=== PATIENT | female | born 2000 | race American Indian/Alaskan Native ===

== ENCOUNTER 2021-05-22 08:03 | Inpatient (IN) | payer OTHER ==
--- NOTE | 2021-05-22 09:56 | History and Physical Report ---
History of Present Illness Date of examination: 05/22/21 Date of admission: 05/22/21 Chief complaint: contractions since 0300 History of present illness: EDC Confirmation: 05/28/2021 Past History : 1 Term Births: 0 Premature Births: 0 Living Children: 0 Para: 0 Mult. Births: 0 Prev : 0 Prev. attempt? 0 Aborta: 0 Elect. Ab: 0 Spont. 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 Infection History Hx of STD: Trich HIV Risk Eval: no Hepatitis B Risk Eval: low risk Partner hx. of genital herpes: no Rash, Viral, or Febrile illness since last LMP? no Varicella/Chicken Pox Status: Immunized Genetic History Congenital Heart Defect: Mom: no Dad: no Livia Disease: Mom: no Dad: no Thalassemia Mom: no Dad: no Neural Tube Defect Mom: no Dad: no Down's Syndrome Mom: no Dad: no Amrik-Sachs Mom: no Dad: no Sickle Cell Disease/Trait Mom: no Dad: no Hemophilia Mom: no Dad: no Muscular Dystrophy Mom: no Dad: no Cystic Fibrosis Mom: no Dad: no Jack Chorea Mom: no Dad: no Mental Retardation Mom: no Dad: no Fragile X Mom: no Dad: no Other Genetic/Chromosomal Disorder Mom: no Dad: no Child w/other defect Mom: no Dad: no Enviromental Exposures Xray Exposure: no Medication, drug, or alcohol use since LMP: no Chemical/Other Exposure: no Exposure to Cat Liter: no Hx of Parvovirus (Fifth Disease): no Occupational Exposure to Children: none Current Allergies (reviewed today): No known allergies Past History Past Medical History: no pertinent history, other (see HPI) Past Surgical History: other (facial reconstruction, see HPI) 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 denies: smoking, alcohol abuse, prescription drug abuse, IV drug use - Obstetrical History Expected Date of Delivery: 05/28/21 Actual Gestation: 39 Week(s) 1 Day(s) : 1 Para: 0 Hx # Term Pregnancies: 0 Number of Pregnancies: 0 Spontaneous Abortions: 0 Induced : 0 Number of Living Children: 0 Medications and Allergies Allergies Allergy/AdvReac Type Severity Reaction Status Date / Time No Known Allergies Allergy Unverified 05/22/21 08:16 Active Meds: Active Medications Ondansetron HCl (Ondansetron 4 Mg/2 Ml Inj) 4 mg IV ONCE VICKY Stop: 05/22/21 12:00 Last Admin: 05/22/21 09:36 Dose: 4 mg Review of Systems All systems: negative Gastrointestinal: nausea, vomiting Genitourinary: contractions, no leakage of fluid - Vital Signs Vital signs: Vital Signs Pulse Pulse Ox 103 H 98 05/22/21 08:43 05/22/21 08:43 Temp Pulse Resp BP Pulse Ox 45 L 100 05/22/21 09:50 05/22/21 09:50 - Physical Exam Breasts: Positive: deferred Cardiovascular: Regular rate Lungs: Positive: Normal air movement Abdomen: Positive: normal appearance, soft. Negative: tenderness, guarding Genitourinary (Female): Positive: normal external genitalia, normal perenium Vulva: both: normal Vagina: Positive: normal moisture Uterus: Positive: normal size, normal contour, other (gravid at term) Anus/Rectum: Positive: normal perianal skin Extremities: Positive: normal - Obstetrical FHR: auscultation normal, category 1 Uterine Contraction Monitor Mode: External Cervical Dilatation: 3 Cervical Effacement Percentage: 90 station: -1 Uterine Contraction Frequency (min): 2-3 Uterine Contraction Pattern: Regular Uterine Tone Measurement Phase: Contraction Uterine Contraction Intensity: Moderate Results Result Diagrams: 05/22/21 09:31 All other labs normal. Tests: (1) Urine Culture, Routine ([id number]) Order Note: Clinical Information: SRC:UR Urine Culture, Routine [A] Final report *1 Tests: (2) Result ([id number]) ! Result 1 [A] BETAGB *2 Beta hemolytic Streptococcus, group B 50,000-100,000 colony forming units per mL Penicillin and ampicillin are drugs of choice for treatment of beta-hemolytic streptococcal infections. Susceptibility testing of penicillins and other beta-lactam agents approved by the FDA for treatment of beta-hemolytic streptococcal infections need not be performed routinely because nonsusceptible isolates are extremely rare in any beta-hemolytic streptococcus and have not been reported for Streptococcus pyogenes (group A). (CLSI) ! Result 2 "Result Below..." *3 RESULT: Lactobacillus species 50,000-100,000 colony forming units per mL Susceptibility not normally performed on this organism. Tests: (1) Profile I ([id number]) HBsAg Screen Negative Negative *1 RPR Non Reactive Non Reactive *2 Rubella Antibodies, IgG 2.06 index Immune >0.99 *3 Non-immune <0.90 Equivocal 0.90 - 0.99 Immune >0.99 ABO Grouping B *4 Rh Factor Positive *5 Please note: Prior records for this patient's ABO / Rh type are not available for additional verification. Antibody Screen Negative Negative *6 WBC 6.5 x10E3/uL 3.4-10.8 *7 RBC [L] 3.61 x10E6/uL 3.77-5.28 *8 Hemoglobin [L] 10.5 g/dL 11.1-15.9 *9 Hematocrit [L] 32.8 % 34.0-46.6 *10 MCV 91 fL 79-97 *11 MCH 29.1 pg 26.6-33.0 *12 MCHC 32.0 g/dL 31.5-35.7 *13 RDW 14.5 % 11.7-15.4 *14 Platelets 202 x10E3/uL 150-450 *15 Neutrophils 59 % Not Estab. *16 Lymphs 33 % Not Estab. *17 Monocytes 7 % Not Estab. *18 Eos 1 % Not Estab. *19 Basos 0 % Not Estab. *20 ! Immature Cells <No Reported Value> *21 Neutrophils (Absolute) 3.8 x10E3/uL 1.4-7.0 *22 Lymphs (Absolute) 2.1 x10E3/uL 0.7-3.1 *23 Monocytes(Absolute) 0.4 x10E3/uL 0.1-0.9 *24 Eos (Absolute) 0.0 x10E3/uL 0.0-0.4 *25 Baso (Absolute) 0.0 x10E3/uL 0.0-0.2 *26 ! Immature Granulocytes 0 % Not Estab. *27 ! Immature Grans (Abs) 0.0 x10E3/uL 0.0-0.1 *28 ! NRBC <No Reported Value> *29 Hematology Comments: <No Reported Value> *30 Tests: (2) AFP Tetra ([id number]) ! Results Report *31 ! Test Results: "Result Below..." *32 RESULT: See interpretation. ! Gest. Age on Collection Date NPRO WEEKS *33 Not provided. ! Gestat. Age Based On As provided *34 ! M[age]NA [age] yr *35 ! Race NPRO *36 Not provided. ! Weight NPRO lbs *37 Not provided. ! Insulin Dep Diabetes NPRO *38 Not provided. ! Multiple Gestation NPRO *39 Not provided. ! AFP Value 43.9 ng/mL *40 ! AFP MoM "Result Below..." *41 RESULT: See interpretation. ! hCG Value 76952 mIU/mL *42 ! hCG MoM "Result Below..." *43 RESULT: See interpretation. ! uE3 Value 1.92 ng/mL *44 ! uE3 MoM "Result Below..." *45 RESULT: See interpretation. ! LONNIE Value 139.93 pg/mL *46 ! LONNIE MoM "Result Below..." *47 RESULT: See interpretation. ! OSBR Risk 1 IN "Result Below..." *48 RESULT: See interpretation. ! DSR (Second Trimester) 1 IN "Result Below..." *49 RESULT: See interpretation. ! DSR (By Age) 1 IN 1116 *50 ! T18 Risk "Result Below..." *51 RESULT: See interpretation. ! T18 (By Age) 1:4349 *52 ! Interpretation MIS2 *53 Interpretation: An interpretation CANNOT be provided for this patient because necessary patient information was not provided (one or more of: gestational age, weight, or patient age). Please call us with new clinical information. Recalculations are not recommended when gestational dating by LMP and ultrasound are within 10 days. ! Comments: SPRCS *54 Areli Herrera, Ph.D., [facility] Director References: Available Upon Request. Multiples Of Median Cutoffs Abbreviation Definitions For AFP Elevations IDD- Insulin Dep Diabetes Dozier 2.5 Black 2.8 OSBR- Open Spina Bifida IDD 2.0 Twins 4.5 Risk DSR Cutoff 1:270 DSR- Down Syndrome Risk T18 Cutoff 1:100 T18- Trisomy 18 Down Syndrome and Trisomy 18 screening are considered Investigational For further inquiries contact [employer] at [phone]. Tests: (3) HB Solu + Rflx Frac ([id number]) Hemoglobin (Hgb) Solubility Negative Negative *55 Tests: (4) HCV Antibody reflex to LAUREN ([id number]) HCV Ab <0.1 s/co ratio 0.0-0.9 *56 Tests: (5) Interpretation: ([id number]) ! Interpretation: SPRCS *57 Negative Not infected with HCV, unless recent infection is suspected or other evidence exists to indicate HCV infection. Tests: (6) HIV Ag/Ab with Reflex ([id number]) HIV Screen 4th Generation wRfx Non Reactive Non Reactive *58 Assessment and Plan Pt presents with c/o nausea, vomiting, and regular painful contractions since 0300. Pt requesting pain medication for relief. Pt denies LOF and having any further complaints. Labs reviewed with pt, she confirms known result of GBS Positive. POC with risks and benefits reviewed with pt. All questions and concerns addressed. Pt verbalizes understanding and agrees to POC. Pt actively vomiting and reports increased rectal pressure. SVE performed 3/90%/-1 with sm all amount of bloody show noted. Cervical change noted. FHT's Cat [address] Perez made aware. Orders received for Pitocin augmentation PRN per protocol. - Patient Problems (1) GBS bacteriuria Current Visit: Yes Status: Acute Plan to address problem: ampicillin q4h (2) 39 weeks gestation of Current Visit: Yes Status: Acute Plan to address problem: admit to labor routine admission labs labor orders placed in EMR continuous monitoring anticipate
[2021-05-22] MEDS ORDERED: AMPICILLIN/NS 2 GM/100 ML 2 GM/100 ML BAG IV SCH ×2 (10:00→14:00)
[2021-05-22] MEDS ORDERED: ONDANSETRON 4 MG/2 ML INJ IV SCH (10:00)
[2021-05-22] MEDS ORDERED: LACTATED RINGERS 1,000 ML ONE (10:02)
[2021-05-22] MEDS: LACTATED RINGERS 1,000 ML IV SCH ×2 (10:17→17:55)
[2021-05-22] MEDS ORDERED: ePHEDrine SULFATE 50 MG/1 ML INJ IV PRN ×2 (10:30→12:18)
[2021-05-22] MEDS ORDERED: CARBOPROST TROMETHAMINE 250 MCG/1 ML INJ IM PRN (10:30)
[2021-05-22] MEDS ORDERED: ACETAMINOPHEN 325 MG TAB PO PRN (10:30)
[2021-05-22 10:40] LABS: Hematocrit 34.7 % (30.3-42.9); Hemoglobin 11.2 gm/dl (10.1-14.3); Mean Corpuscular HGB Conc 32 % (30-34); Mean Corpuscular Volume 91 fl (79-97); Platelet Count 201 K/mm3 (140-440); Red Blood Count 3.83 M/mm3 (3.65-5.03); Red Cell Distribution Width 15.9 % (13.2-15.2)
[2021-05-22] MEDS ORDERED: MINERAL OIL 30 ML ORAL LIQD PO PRN (11:00)
[2021-05-22] MEDS ORDERED: LIDOCAINE (2%) 20 MG/1 ML VIAL 20 ML MDV INFILTRATI SCH (11:00)
[2021-05-22] MEDS ORDERED: TERBUTALINE 1 MG/1 ML INJ SUB-Q PRN (11:00)
[2021-05-22] MEDS ORDERED: LOPERAMIDE 2 MG CAP PO PRN (11:00)
[2021-05-22] MEDS ORDERED: METHYLERGONOVINE MALEATE 0.2 MG/ML VIAL IM PRN (11:00)
[2021-05-22] MEDS ORDERED: OXYTOCIN 10 UNIT/1 ML INJ IM PRN (11:00)
[2021-05-22] MEDS ORDERED: OXYTOCIN DRIP 30 UNITS/500 ML BAG IV SCH (11:00)
[2021-05-22] MEDS ORDERED: NalbUPHINE 10 MG/1 ML INJ IV PRN (11:00)
[2021-05-22] MEDS ORDERED: miSOPROStol 200 MCG TAB PR PRN (11:00)
[2021-05-22] MEDS ORDERED: NALOXONE 2 MG/2 ML INJ IV PRN (12:18)
--- NOTE | 2021-05-22 12:18 | Anesthesia Consultation ---
Anesthesia Consult and Med Hx Date of service: 05/22/21 - Airway Anesthetic Teeth Evaluation: Poor ROM Head & Neck: Adequate Mental/Hyoid Distance: Adequate Mallampati Class: Class II Intubation Access Assessment: Probably Good - Pulmonary Exam CTA: Yes - Cardiac Exam Cardiac Exam: RRR - Pre-Operative Health Status ASA Pre-Surgery Classification: ASA2 Proposed Anesthetic Plan: Epidural - Pulmonary Hx Smoking: No Hx Asthma: No Hx Respiratory Symptoms: No SOB: No COPD: No Home Oxygen Therapy: No Hx Pneumonia: No Hx Sleep Apnea: No - Cardiovascular System Hx Hypertension: No Hx Coronary Artery Disease: No Hx Heart Attack/AMI: No Hx Angina: No Hx Percutaneous Transluminal Coronary Angioplasty (PTCA): No Hx Cardia Arrhythmia: No Hx Pacemaker: No Hx Internal Defibrillator: No Hx Valvular Heart Disease: No Hx Heart Murmur: No Hx Peripheral Vascular Disease: No - Central Nervous System Hx Neuromuscular Disorder: No Hx Seizures: No CVA: No Hx Back Pain: Yes Hx Psychiatric Problems: Yes (Depression) - Gastrointestinal Hx Ulcer: No Hx Gastroesophageal Reflux Disease: No - Endocrine Hx Renal Disease: No Hx End Stage Renal Disease: No Hx Cirrhosis: No Hx Liver Disease: No Hx Insulin Dependent Diabetes: No Hx Non-Insulin Dependent Diabetes: No Hx Thyroid Disease: No Hx Hypothyroidism: No Hx Hyperthyroidism: No - Hematic Hx Anemia: No Hx Sickle Cell Disease: No - Other Systems Hx Alcohol Use: No Hx Substance Use: No Hx Cancer: No Hx Obesity: No - Additional Comments Anesthesia Medical History Comments: 2016 - right femur fracture - harware in place. 2019 - dog attack to face - 5 reconstructive surgeries
--- NOTE | 2021-05-22 13:04 | Progress Note ---
Labor Epidural - Labor Epidural Start Time: 12:25 Stop Time: 12:27 Performed by:: KATHRYN STEWART Procedure: Patient is requesting epidural for labor pain. H&P and labs reviewed. Procedure explained, questions answered, consent obtained. Patient placed in sitting position with monitors applied. Timeout performed immediately before start of procedure. Prep/drape in usual sterile fashion. Skin localized 3 mL 1% lidocaine at L[3]-L[4] interspace. 17-gauge Touhy epidural needle advanced to PAR[place] with saline at [6] cm. No blood/CSF noted via epidural needle. Epidural catheter advanced to [10] cm. Negative aspiration for blood and CSF via catheter, negative response to test dose 3 ml 1.5% lidocaine w/ epi. Sterile dressing applied followed by tape reinforcement. Patient tolerated procedure well. No immediate complications noted.
[2021-05-22] MEDS: fentaNYL-BUPIV 2 MCG/ML-0.125% 200 MCG/100 ML BAG EPIDURAL SCH ×2 (13:43→21:15)
[2021-05-22] MEDS ORDERED: AMPICILLIN 1 GM in SODIUM CHLORIDE 0.9% 50 ML IV SCH (14:00)
[2021-05-22] MEDS: AMPICILLIN/NS 1 GM/50 ML 1 GM/50 ML BAG IV SCH ×2 (16:42→21:42)
[2021-05-22] MEDS ORDERED: BICITRA ORAL LIQD 30ML PO ONE (20:23)
[2021-05-22] MEDS ORDERED: OXYTOCIN DRIP 30,000 MILLIUNITS/500 ML BAG IV ONE (20:38)
--- NOTE | 2021-05-22 20:44 | Progress Note ---
Assessment and Plan Pt with c/o heartburn and contraction pain. Pt previously comfortable with epidural. SVE performed and pt tolerated well. RN at bedside for exam and epidural bolus given. Pt repositioned to with peanut ball between her legs. T's Cat [address] Perez made aware of exam. Orders received to start Pitocin augmentation per protocol. - Patient Problems (1) GBS bacteriuria Current Visit: Yes Status: Acute Plan to address problem: ampicillin q4h (2) 39 weeks gestation of Current Visit: Yes Status: Acute Plan to address problem: Pitocin augmentation to protocol continuous monitoring anticipate Subjective - Subjective Date of service: 05/22/21 Principal diagnosis: term active labor, GBS+ Interval history: EDC Confirmation: 05/28/2021 Past History : 1 Term Births: 0 Premature Births: 0 Living Children: 0 Para: 0 Mult. Births: 0 Prev : 0 Prev. attempt? 0 Aborta: 0 Elect. Ab: 0 Spont. 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 Infection History Hx of STD: Trich HIV Risk Eval: no Hepatitis B Risk Eval: low risk Partner hx. of genital herpes: no Rash, Viral, or Febrile illness since last LMP? no Varicella/Chicken Pox Status: Immunized Genetic History Congenital Heart Defect: Mom: no Dad: no Livia Disease: Mom: no Dad: no Thalassemia Mom: no Dad: no Neural Tube Defect Mom: no Dad: no Down's Syndrome Mom: no Dad: no Amrik-Sachs Mom: no Dad: no Sickle Cell Disease/Trait Mom: no Dad: no Hemophilia Mom: no Dad: no Muscular Dystrophy Mom: no Dad: no Cystic Fibrosis Mom: no Dad: no Lorna Chorea Mom: no Dad: no Mental Retardation Mom: no Dad: no Fragile X Mom: no Dad: no Other Genetic/Chromosomal Disorder Mom: no Dad: no Child w/other defect Mom: no Dad: no Enviromental Exposures Xray Exposure: no Medication, drug, or alcohol use since LMP: no Chemical/Other Exposure: no Exposure to Cat Liter: no Hx of Parvovirus (Fifth Disease): no Occupational Exposure to Children: none Current Allergies (reviewed today): No known allergies Patient reports: new complaints (pt reports feeling contractions and c/o heartburn), contractions, no loss of fluid, no vaginal bleeding Objective - Vital Signs Vital Signs: Vital Signs - 12hr 05/22/21 05/22/21 05/22/21 08:43 08:48 08:53 Temperature Pulse Rate 103 H 109 H 69 Respiratory Rate Blood Pressure Blood Pressure [Right] O2 Sat by Pulse 98 100 100 Oximetry O2 Sat by Pulse Oximetry [ Bilateral] 05/22/21 05/22/21 05/22/21 08:58 09:03 09:05 Temperature Pulse Rate 122 H 99 H 72 Respiratory Rate Blood Pressure Blood Pressure [Right] O2 Sat by Pulse 99 98 90 Oximetry O2 Sat by Pulse Oximetry [ Bilateral] 05/22/21 05/22/21 05/22/21 09:08 09:13 09:18 Temperature Pulse Rate 105 H 100 H 94 H Respiratory Rate Blood Pressure Blood Pressure [Right] O2 Sat by Pulse 98 100 96 Oximetry O2 Sat by Pulse Oximetry [ Bilateral] 05/22/21 05/22/21 05/22/21 09:20 09:23 09:29 Temperature Pulse Rate 78 118 H 95 H Respiratory Rate Blood Pressure Blood Pressure [Right] O2 Sat by Pulse 85 100 100 Oximetry O2 Sat by Pulse Oximetry [ Bilateral] 05/22/21 05/22/21 05/22/21 09:31 09:34 09:36 Temperature Pulse Rate 77 65 Respiratory Rate Blood Pressure Blood Pressure [Right] O2 Sat by Pulse 84 98 93 Oximetry O2 Sat by Pulse Oximetry [ Bilateral] 05/22/21 05/22/21 05/22/21 09:40 09:41 09:45 Temperature Pulse Rate 101 H 116 H 82 Respiratory Rate Blood Pressure Blood Pressure [Right] O2 Sat by Pulse 100 87 98 Oximetry O2 Sat by Pulse Oximetry [ Bilateral] 05/22/21 05/22/21 05/22/21 09:50 09:55 10:00 Temperature Pulse Rate 45 L 73 72 Respiratory Rate Blood Pressure Blood Pressure [Right] O2 Sat by Pulse 100 100 99 Oximetry O2 Sat by Pulse Oximetry [ Bilateral] 05/22/21 05/22/21 05/22/21 10:04 10:05 10:10 Temperature Pulse Rate 60 78 65 Respiratory Rate Blood Pressure Blood Pressure [Right] O2 Sat by Pulse 94 100 98 Oximetry O2 Sat by Pulse Oximetry [ Bilateral] 05/22/21 05/22/21 05/22/21 10:15 10:20 10:25 Temperature Pulse Rate 68 69 68 Respiratory Rate Blood Pressure Blood Pressure [Right] O2 Sat by Pulse 99 99 99 Oximetry O2 Sat by Pulse Oximetry [ Bilateral] 05/22/21 05/22/21 05/22/21 10:30 10:35 10:40 Temperature Pulse Rate 64 73 71 Respiratory Rate Blood Pressure Blood Pressure [Right] O2 Sat by Pulse 98 100 97 Oximetry O2 Sat by Pulse Oximetry [ Bilateral] 05/22/21 05/22/21 05/22/21 10:44 10:45 10:50 Temperature Pulse Rate 79 73 66 Respiratory Rate Blood Pressure Blood Pressure [Right] O2 Sat by Pulse 90 96 99 Oximetry O2 Sat by Pulse Oximetry [ Bilateral] 05/22/21 05/22/21 05/22/21 10:55 11:00 11:03 Temperature Pulse Rate 72 106 H 96 H Respiratory Rate Blood Pressure Blood Pressure [Right] O2 Sat by Pulse 98 98 92 Oximetry O2 Sat by Pulse 98 Oximetry [ Bilateral] 05/22/21 05/22/21 05/22/21 11:04 11:05 11:10 Temperature Pulse Rate 80 86 Respiratory 20 Rate Blood Pressure Blood Pressure [Right] O2 Sat by Pulse 99 98 Oximetry O2 Sat by Pulse Oximetry [ Bilateral] 05/22/21 05/22/21 05/22/21 11:14 11:15 11:20 Temperature Pulse Rate 91 H 80 74 Respiratory Rate Blood Pressure Blood Pressure [Right] O2 Sat by Pulse 90 96 100 Oximetry O2 Sat by Pulse Oximetry [ Bilateral] 05/22/21 05/22/21 05/22/21 11:25 11:30 11:35 Temperature Pulse Rate 80 81 90 Respiratory Rate Blood Pressure Blood Pressure [Right] O2 Sat by Pulse 99 99 98 Oximetry O2 Sat by Pulse Oximetry [ Bilateral] 05/22/21 05/22/21 05/22/21 11:40 11:45 11:50 Temperature Pulse Rate 76 79 79 Respiratory Rate Blood Pressure Blood Pressure [Right] O2 Sat by Pulse 100 99 98 Oximetry O2 Sat by Pulse Oximetry [ Bilateral] 05/22/21 05/22/21 05/22/21 11:55 12:00 12:04 Temperature Pulse Rate 77 77 Respiratory 20 Rate Blood Pressure Blood Pressure [Right] O2 Sat by Pulse 98 99 Oximetry O2 Sat by Pulse Oximetry [ Bilateral] 05/22/21 05/22/21 05/22/21 12:05 12:10 12:15 Temperature Pulse Rate 80 81 85 Respiratory Rate Blood Pressure Blood Pressure [Right] O2 Sat by Pulse 98 99 99 Oximetry O2 Sat by Pulse Oximetry [ Bilateral] 05/22/21 05/22/21 05/22/21 12:20 12:25 12:30 Temperature Pulse Rate 77 86 86 Respiratory Rate Blood Pressure Blood Pressure [Right] O2 Sat by Pulse 96 98 98 Oximetry O2 Sat by Pulse Oximetry [ Bilateral] 05/22/21 05/22/21 05/22/21 12:33 12:35 12:40 Temperature Pulse Rate 93 H 78 90 Respiratory Rate Blood Pressure 119/77 Blood Pressure [Right] O2 Sat by Pulse 97 98 Oximetry O2 Sat by Pulse Oximetry [ Bilateral] 05/22/21 05/22/21 05/22/21 12:45 12:47 12:50 Temperature Pulse Rate 86 86 89 Respiratory Rate Blood Pressure 104/66 104/70 Blood Pressure [Right] O2 Sat by Pulse 98 98 Oximetry O2 Sat by Pulse Oximetry [ Bilateral] 0105/22/21 05/22/21 12:51 12:53 12:55 Temperature Pulse Rate 75 65 65 Respiratory Rate Blood Pressure 93/53 94/55 Blood Pressure [Right] O2 Sat by Pulse 98 Oximetry O2 Sat by Pulse Oximetry [ Bilateral] 05/22/21 05/22/21 05/22/21 12:56 12:59 13:00 Temperature Pulse Rate 67 92 H 93 H Respiratory Rate Blood Pressure 90/51 92/57 Blood Pressure [Right] O2 Sat by Pulse 96 Oximetry O2 Sat by Pulse Oximetry [ Bilateral] 05/22/21 05/22/21 05/22/21 13:02 13:05 13:08 Temperature Pulse Rate 63 65 62 Respiratory Rate Blood Pressure 94/55 88/50 91/56 Blood Pressure [Right] O2 Sat by Pulse 97 Oximetry O2 Sat by Pulse Oximetry [ Bilateral] 05/22/21 05/22/21 05/22/21 13:10 13:12 13:14 Temperature Pulse Rate 66 61 67 Respiratory Rate Blood Pressure 82/51 82/52 Blood Pressure [Right] O2 Sat by Pulse 98 Oximetry O2 Sat by Pulse Oximetry [ Bilateral] 05/22/21 05/22/21 05/22/21 13:15 13:18 13:20 Temperature Pulse Rate 65 67 74 Respiratory Rate Blood Pressure 81/50 76/42 Blood Pressure [Right] O2 Sat by Pulse 96 96 Oximetry O2 Sat by Pulse Oximetry [ Bilateral] 05/22/21 05/22/21 05/22/21 13:24 13:25 13:26 Temperature Pulse Rate 56 L 60 59 L Respiratory Rate Blood Pressure 88/53 86/52 Blood Pressure [Right] O2 Sat by Pulse 96 Oximetry O2 Sat by Pulse Oximetry [ Bilateral] 05/22/21 05/22/21 05/22/21 13:29 13:30 13:33 Temperature 98.1 F Pulse Rate 59 L 60 77 Respiratory 18 Rate Blood Pressure 94/57 84/46 Blood Pressure 94/57 [Right] O2 Sat by Pulse 98 Oximetry O2 Sat by Pulse Oximetry [ Bilateral] 05/22/21 05/22/21 05/22/21 13:35 13:37 13:39 Temperature Pulse Rate 64 64 67 Respiratory Rate Blood Pressure 97/52 94/51 Blood Pressure [Right] O2 Sat by Pulse 97 Oximetry O2 Sat by Pulse Oximetry [ Bilateral] 05/22/21 05/22/21 05/22/21 13:40 13:42 13:44 Temperature Pulse Rate 66 62 61 Respiratory Rate Blood Pressure 100/57 101/60 Blood Pressure [Right] O2 Sat by Pulse 99 Oximetry O2 Sat by Pulse Oximetry [ Bilateral] 05/22/21 05/22/21 05/22/21 13:45 13:47 13:50 Temperature Pulse Rate 63 60 73 Respiratory Rate Blood Pressure 98/62 Blood Pressure [Right] O2 Sat by Pulse 98 96 Oximetry O2 Sat by Pulse Oximetry [ Bilateral] 05/22/21 05/22/21 05/22/21 13:51 13:54 13:55 Temperature Pulse Rate 72 62 67 Respiratory Rate Blood Pressure 83/50 99/55 Blood Pressure [Right] O2 Sat by Pulse 97 Oximetry O2 Sat by Pulse Oximetry [ Bilateral] 05/22/21 05/22/21 05/22/21 14:00 14:05 14:09 Temperature Pulse Rate 71 63 71 Respiratory Rate Blood Pressure 83/52 Blood Pressure [Right] O2 Sat by Pulse 97 97 Oximetry O2 Sat by Pulse Oximetry [ Bilateral] 05/22/21 05/22/21 05/22/21 14:10 14:15 14:20 Temperature Pulse Rate 69 70 65 Respiratory Rate Blood Pressure Blood Pressure [Right] O2 Sat by Pulse 97 97 98 Oximetry O2 Sat by Pulse Oximetry [ Bilateral] 05/22/21 05/22/21 05/22/21 14:25 14:30 14:35 Temperature Pulse Rate 66 67 63 Respiratory Rate Blood Pressure Blood Pressure [Right] O2 Sat by Pulse 97 98 99 Oximetry O2 Sat by Pulse Oximetry [ Bilateral] 05/22/21 05/22/21 05/22/21 14:40 14:45 14:50 Temperature Pulse Rate 67 71 60 Respiratory Rate Blood Pressure 102/56 Blood Pressure [Right] O2 Sat by Pulse 98 98 97 Oximetry O2 Sat by Pulse Oximetry [ Bilateral] 05/22/21 05/22/21 05/22/21 14:55 14:56 15:00 Temperature Pulse Rate 67 66 68 Respiratory Rate Blood Pressure 100/52 Blood Pressure [Right] O2 Sat by Pulse 96 95 Oximetry O2 Sat by Pulse Oximetry [ Bilateral] 05/22/21 05/22/21 05/22/21 15:05 15:09 15:10 Temperature Pulse Rate 70 73 62 Respiratory Rate Blood Pressure 94/51 Blood Pressure [Right] O2 Sat by Pulse 98 97 Oximetry O2 Sat by Pulse Oximetry [ Bilateral] 05/22/21 05/22/21 05/22/21 15:15 15:20 15:25 Temperature Pulse Rate 63 65 64 Respiratory Rate Blood Pressure Blood Pressure [Right] O2 Sat by Pulse 97 98 98 Oximetry O2 Sat by Pulse Oximetry [ Bilateral] 05/22/21 05/22/21 05/22/21 15:26 15:30 15:35 Temperature Pulse Rate 62 75 64 Respiratory Rate Blood Pressure 96/54 Blood Pressure [Right] O2 Sat by Pulse 97 97 Oximetry O2 Sat by Pulse Oximetry [ Bilateral] 05/22/21 05/22/21 05/22/21 15:40 15:41 15:43 Temperature Pulse Rate 66 65 Respiratory 18 Rate Blood Pressure 92/56 Blood Pressure [Right] O2 Sat by Pulse 97 Oximetry O2 Sat by Pulse Oximetry [ Bilateral] 05/22/21 05/22/21 05/22/21 15:45 15:50 15:55 Temperature Pulse Rate 71 79 63 Respiratory Rate Blood Pressure Blood Pressure [Right] O2 Sat by Pulse 97 97 99 Oximetry O2 Sat by Pulse Oximetry [ Bilateral] 05/22/21 05/22/21 05/22/21 15:56 16:00 16:05 Temperature Pulse Rate 60 65 67 Respiratory Rate Blood Pressure 103/58 Blood Pressure [Right] O2 Sat by Pulse 97 98 Oximetry O2 Sat by Pulse Oximetry [ Bilateral] 05/22/21 05/22/21 05/22/21 16:10 16:15 16:20 Temperature Pulse Rate 69 69 81 Respiratory Rate Blood Pressure 99/60 Blood Pressure [Right] O2 Sat by Pulse 98 97 97 Oximetry O2 Sat by Pulse Oximetry [ Bilateral] 05/22/21 05/22/21 05/22/21 16:25 16:26 16:30 Temperature Pulse Rate 69 67 64 Respiratory Rate Blood Pressure 95/51 Blood Pressure [Right] O2 Sat by Pulse 98 98 Oximetry O2 Sat by Pulse Oximetry [ Bilateral] 05/22/21 05/22/21 05/22/21 16:35 16:40 16:41 Temperature Pulse Rate 69 76 65 Respiratory Rate Blood Pressure 103/63 Blood Pressure [Right] O2 Sat by Pulse 98 99 Oximetry O2 Sat by Pulse Oximetry [ Bilateral] 05/22/21 05/22/21 05/22/21 16:45 16:47 16:50 Temperature 98.5 F Pulse Rate 72 98 H 65 Respiratory 18 Rate Blood Pressure Blood Pressure 103/63 [Right] O2 Sat by Pulse 98 98 99 Oximetry O2 Sat by Pulse Oximetry [ Bilateral] 05/22/21 05/22/21 05/22/21 16:54 16:55 17:00 Temperature Pulse Rate 71 63 67 Respiratory Rate Blood Pressure 94/54 Blood Pressure [Right] O2 Sat by Pulse 99 99 Oximetry O2 Sat by Pulse Oximetry [ Bilateral] 05/22/21 05/22/21 05/22/21 17:05 17:10 17:11 Temperature Pulse Rate 76 65 82 Respiratory Rate Blood Pressure 95/61 Blood Pressure [Right] O2 Sat by Pulse 98 99 Oximetry O2 Sat by Pulse Oximetry [ Bilateral] 05/22/21 05/22/21 05/22/21 17:15 17:20 17:25 Temperature Pulse Rate 72 64 70 Respiratory Rate Blood Pressure Blood Pressure [Right] O2 Sat by Pulse 97 98 100 Oximetry O2 Sat by Pulse Oximetry [ Bilateral] 05/22/21 05/22/21 05/22/21 17:26 17:30 17:35 Temperature Pulse Rate 63 63 66 Respiratory Rate Blood Pressure 109/61 Blood Pressure [Right] O2 Sat by Pulse 99 98 Oximetry O2 Sat by Pulse Oximetry [ Bilateral] 05/22/21 05/22/21 05/22/21 17:40 17:45 17:50 Temperature Pulse Rate 66 66 68 Respiratory Rate Blood Pressure Blood Pressure [Right] O2 Sat by Pulse 98 97 97 Oximetry O2 Sat by Pulse Oximetry [ Bilateral] 05/22/21 05/22/21 05/22/21 17:55 17:56 17:59 Temperature Pulse Rate 65 66 95 H Respiratory Rate Blood Pressure 96/50 Blood Pressure [Right] O2 Sat by Pulse 95 91 Oximetry O2 Sat by Pulse Oximetry [ Bilateral] 05/22/21 05/22/21 05/22/21 18:00 18:05 18:10 Temperature Pulse Rate 93 H 75 64 Respiratory Rate Blood Pressure 92/56 Blood Pressure [Right] O2 Sat by Pulse 98 98 97 Oximetry O2 Sat by Pulse Oximetry [ Bilateral] 05/22/21 05/22/21 05/22/21 18:15 18:20 18:25 Temperature Pulse Rate 67 73 82 Respiratory Rate Blood Pressure 88/51 Blood Pressure [Right] O2 Sat by Pulse 99 98 98 Oximetry O2 Sat by Pulse Oximetry [ Bilateral] 05/22/21 05/22/21 05/22/21 18:30 18:35 18:40 Temperature Pulse Rate 74 75 68 Respiratory Rate Blood Pressure 99/56 Blood Pressure [Right] O2 Sat by Pulse 99 99 98 Oximetry O2 Sat by Pulse Oximetry [ Bilateral] 05/22/21 05/22/21 05/22/21 18:45 18:50 18:51 Temperature Pulse Rate 69 89 74 Respiratory Rate Blood Pressure Blood Pressure [Right] O2 Sat by Pulse 98 98 93 Oximetry O2 Sat by Pulse Oximetry [ Bilateral] 05/22/21 05/22/21 05/22/21 18:56 18:57 19:02 Temperature Pulse Rate 65 71 88 Respiratory Rate Blood Pressure 103/64 Blood Pressure [Right] O2 Sat by Pulse 99 98 Oximetry O2 Sat by Pulse Oximetry [ Bilateral] 05/22/21 05/22/21 05/22/21 19:07 19:11 19:12 Temperature Pulse Rate 119 H 106 H 73 Respiratory Rate Blood Pressure 90/52 Blood Pressure [Right] O2 Sat by Pulse 99 98 Oximetry O2 Sat by Pulse Oximetry [ Bilateral] 05/22/21 05/22/21 05/22/21 19:17 19:22 19:24 Temperature Pulse Rate 84 107 H 106 H Respiratory Rate Blood Pressure 86/50 Blood Pressure [Right] O2 Sat by Pulse 97 98 Oximetry O2 Sat by Pulse Oximetry [ Bilateral] 05/22/21 05/22/21 05/22/21 19:27 19:32 19:37 Temperature Pulse Rate 87 82 124 H Respiratory Rate Blood Pressure Blood Pressure [Right] O2 Sat by Pulse 98 97 96 Oximetry O2 Sat by Pulse Oximetry [ Bilateral] 05/22/21 05/22/21 05/22/21 19:39 19:42 19:47 Temperature Pulse Rate 85 110 H 75 Respiratory Rate Blood Pressure 104/62 Blood Pressure [Right] O2 Sat by Pulse 98 97 Oximetry O2 Sat by Pulse Oximetry [ Bilateral] 05/22/21 05/22/21 05/22/21 19:49 19:52 19:57 Temperature Pulse Rate 110 H 109 H 107 H Respiratory Rate Blood Pressure 83/53 85/57 Blood Pressure [Right] O2 Sat by Pulse 99 98 Oximetry O2 Sat by Pulse Oximetry [ Bilateral] 05/22/21 05/22/21 05/22/21 20:02 20:07 20:09 Temperature Pulse Rate 103 H 108 H 91 H Respiratory Rate Blood Pressure 96/56 Blood Pressure [Right] O2 Sat by Pulse 99 99 Oximetry O2 Sat by Pulse Oximetry [ Bilateral] 05/22/21 05/22/21 05/22/21 20:12 20:17 20:22 Temperature Pulse Rate 114 H 99 H 72 Respiratory Rate Blood Pressure Blood Pressure [Right] O2 Sat by Pulse 99 99 100 Oximetry O2 Sat by Pulse Oximetry [ Bilateral] 05/22/21 05/22/21 05/22/21 20:23 20:27 20:32 Temperature Pulse Rate 78 76 80 Respiratory Rate Blood Pressure 95/56 Blood Pressure [Right] O2 Sat by Pulse 99 99 Oximetry O2 Sat by Pulse Oximetry [ Bilateral] 05/22/21 20:37 Temperature Pulse Rate 77 Respiratory Rate Blood Pressure Blood Pressure [Right] O2 Sat by Pulse 98 Oximetry O2 Sat by Pulse Oximetry [ Bilateral] - Exam Breasts: deferred Cardiovascular: Regular rate Lungs: Normal air movement Abdomen: Present: normal appearance, soft. Absent: tenderness Vulva: both: normal Uterus: Present: normal FHR: auscultation normal, category 1 Uterine Contraction Monitor Mode: External Cervical Dilatation: 6 Cervical Effacement Percentage: 100 station: -1 Uterine Contraction Frequency (min): 2-5 Uterine Contraction Pattern: Regular Uterine Tone Measurement Phase: Resting Extremities: normal - Labs Labs: Abnormal Labs 05/22/21 09:31 RDW 15.9 H Laboratory Results - last 24 hr 05/22/21 05/22/21 05/22/21 09:31 09:31 12:20 WBC 8.0 RBC 3.83 Hgb 11.2 Hct 34.7 MCV 91 MCH 29 MCHC 32 RDW 15.9 H Plt Count 201 Syphilis IgG Antibody Nonreactive Coronavirus (PCR) Blood Type B POSITIVE Antibody Screen Negative 05/22/21 Unknown WBC RBC Hgb Hct MCV MCH MCHC RDW Plt Count Syphilis IgG Antibody Coronavirus (PCR) Negative Blood Type Antibody Screen
[2021-05-23] MEDS: AMPICILLIN/NS 1 GM/50 ML 1 GM/50 ML BAG IV SCH (02:46)
--- NOTE | 2021-05-23 04:27 | Procedure Note ---
OB Delivery Note - Delivery Date of Delivery: 05/23/21 Commercial Photographer: CLAUDIO BARKER Estimated blood loss: <100cc - Vaginal Delivery presentation: vertex Delivery position: OA Intrapartum events: meconium Delivery induction: none Delivery augmentation: pitocin Delivery monitor: external FHT, external uterine Route of delivery: Delivery placenta: spontaneous Delivery cord: 3 umbilical vessels Episiotomy: none Delivery laceration: none Anesthesia: epidural Delivery comments: PAU present for delivery counts correct x2 mother and baby left LDR stable - A at 1 minute: 8 at 5 minutes: 9 Infant Gender: Male (8lbs)
[2021-05-23] MEDS ORDERED: diphenhydrAMINE 25 MG CAP PO PRN (05:36)
[2021-05-23] MEDS ORDERED: WITCH HAZEL/ GLYCERIN PAD TP PRN (05:36)
[2021-05-23] MEDS ORDERED: HYDROCORTISONE 25 MG RECTAL SUPP PR PRN (05:36)
[2021-05-23] MEDS ORDERED: PROMETHAZINE 25 MG RECT SUPP PR PRN (05:36)
[2021-05-23] MEDS ORDERED: MAGNESIUM HYDROXIDE (MOM) ORAL LIQD UDC PO PRN (05:36)
[2021-05-23] MEDS ORDERED: LANOLIN/ZINC/DIMETHICONE (LANSINOH) 7 GM TP PRN (05:36)
[2021-05-23] MEDS ORDERED: SENNOSIDES/DOCUSATE SODIUM 8.6/50 MG TAB PO SCH (05:36)
[2021-05-23] MEDS ORDERED: BENZOCAINE/MENTHOL 20/0.5% TOP SPRAY 56 GM TP PRN (05:36)
[2021-05-23] MEDS ORDERED: ACETAMINOPHEN 325 MG TAB PO PRN (05:36)
[2021-05-23] MEDS ORDERED: ONDANSETRON 4 MG/2 ML INJ IV PRN (05:36)
[2021-05-23] MEDS ORDERED: PROMETHAZINE 25 MG TAB PO PRN (05:36)
[2021-05-23] MEDS ORDERED: oxyCODONE /ACETAMINOPHEN 5-325MG TAB PO PRN (05:36)
--- NOTE | 2021-05-23 05:44 | Post Anesthesia Evaluation ---
- Post Anesthesia Evaluation Patient Participated: Yes Airway Patent: Yes Stable Respiratory Function: Yes Nausea/Vomiting: No Temp > 96.8F: Yes Pain Manageable: Yes Adequeate Hydration: Yes Anesthesia Complications: No Block Receding Appropriately: Yes Patient on Ventilator: No
[2021-05-23] MEDS: IBUPROFEN 600 MG TAB PO SCH ×3 (06:30→18:11)
[2021-05-23] MEDS: PRENATAL VIT27-FE FUMARATE-FOLIC ACID VIT TAB PO SCH (10:31)
[2021-05-23] MEDS: DOCUSATE SODIUM 100 MG CAP PO SCH ×2 (10:31→22:06)
[2021-05-23] MEDS ORDERED: FLU VACC QUAD 2021-22(6MOS UP)/PF 60 MCG/0.5 ML SYRINGE IM ONE (12:00)
--- NOTE | 2021-05-23 15:07 | Progress Note ---
Assessment and Plan Pt denies complaints; reports eating, drinking, and voiding well and without difficulty. Pt reports successfully. POC reviewed. Questions encouraged and answered. control options discussed and pt undecided at this time. Anticipate stable discharge home tomorrow. - Patient Problems (1) (normal spontaneous vaginal delivery) Current Visit: Yes Status: Acute Plan to address problem: continue pathway Subjective - Subjective Date of service: 05/24/21 Principal diagnosis: Interval history: EDC Confirmation: 05/28/2021 Past History : 1 Term Births: 0 Premature Births: 0 Living Children: 0 Para: 0 Mult. Births: 0 Prev : 0 Prev. attempt? 0 Aborta: 0 Elect. Ab: 0 Spont. 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 Infection History Hx of STD: Trich HIV Risk Eval: no Hepatitis B Risk Eval: low risk Partner hx. of genital herpes: no Rash, Viral, or Febrile illness since last LMP? no Varicella/Chicken Pox Status: Immunized Genetic History Congenital Heart Defect: Mom: no Dad: no Livia Disease: Mom: no Dad: no Thalassemia Mom: no Dad: no Neural Tube Defect Mom: no Dad: no Down's Syndrome Mom: no Dad: no Amrik-Sachs Mom: no Dad: no Sickle Cell Disease/Trait Mom: no Dad: no Hemophilia Mom: no Dad: no Muscular Dystrophy Mom: no Dad: no Cystic Fibrosis Mom: no Dad: no Lorna Chorea Mom: no Dad: no Mental Retardation Mom: no Dad: no Fragile X Mom: no Dad: no Other Genetic/Chromosomal Disorder Mom: no Dad: no Child w/other defect Mom: no Dad: no Enviromental Exposures Xray Exposure: no Medication, drug, or alcohol use since LMP: no Chemical/Other Exposure: no Exposure to Cat Liter: no Hx of Parvovirus (Fifth Disease): no Occupational Exposure to Children: none Current Allergies (reviewed today): No known allergies Patient reports: appetite normal, voiding normally, pain well controlled, ambulating normally : doing well, nursing well Objective - Vital Signs Latest vital signs: Vital Signs Temp Pulse Resp BP BP Pulse Ox Pulse Ox 05/23/21 12:33 97.6 F 78 18 103/65 97 05/23/21 08:10 98 05/23/21 06:07 99.2 F 69 18 114/69 98 99 05/23/21 05:48 65 96 05/23/21 05:43 75 95 05/23/21 05:38 66 96 05/23/21 05:37 71 128/74 05/23/21 05:33 72 97 05/23/21 05:28 72 99 05/23/21 05:23 67 98 05/23/21 05:22 65 130/80 05/23/21 05:18 67 99 05/23/21 05:13 68 98 05/23/21 05:08 65 99 05/23/21 05:07 67 132/79 05/23/21 05:03 75 100 05/23/21 04:58 73 97 05/23/21 04:53 76 98 05/23/21 04:52 68 111/77 05/23/21 04:48 83 98 05/23/21 04:43 74 98 05/23/21 04:38 85 98 05/23/21 04:36 78 111/72 05/23/21 04:33 81 98 05/23/21 04:28 90 99 05/23/21 04:23 110 H 99 05/23/21 04:18 86 95 05/23/21 04:13 77 96 05/23/21 04:07 94 H 98 05/23/21 04:02 102 H 85 05/23/21 03:57 84 100 05/23/21 03:52 90 97 05/23/21 03:47 113 H 98 05/23/21 03:42 86 98 05/23/21 03:37 89 95 05/23/21 03:35 77 138/80 05/23/21 03:32 101 H 97 05/23/21 03:27 83 98 05/23/21 03:22 102 H 98 05/23/21 03:17 89 97 05/23/21 03:12 94 H 96 05/23/21 03:07 76 96 05/23/21 03:02 79 93 05/23/21 02:57 75 97 05/23/21 02:52 117 H 99 05/23/21 02:47 128 H 99 05/23/21 02:42 100 H 99 05/23/21 02:37 101 H 98 05/23/21 02:35 101 H 103/62 05/23/21 02:32 86 99 05/23/21 02:27 93 H 98 05/23/21 02:22 82 99 05/23/21 02:17 100 H 98 05/23/21 02:12 107 H 98 05/23/21 02:07 103 H 98 05/23/21 02:02 101 H 98 05/23/21 01:57 69 97 05/23/21 01:52 71 97 05/23/21 01:47 73 97 05/23/21 01:42 73 97 05/23/21 01:37 74 95 05/23/21 01:35 70 102/55 05/23/21 01:32 69 95 05/23/21 01:27 79 96 05/23/21 01:22 78 97 05/23/21 01:17 71 98 05/23/21 01:12 69 98 05/23/21 01:07 78 97 05/23/21 01:02 68 98 05/23/21 00:57 72 98 05/23/21 00:52 69 98 05/23/21 00:47 70 98 05/23/21 00:42 74 97 05/23/21 00:37 71 98 05/23/21 00:34 71 103/60 05/23/21 00:32 70 98 05/23/21 00:27 72 98 05/23/21 00:22 71 98 05/23/21 00:17 97 H 98 05/23/21 00:12 86 97 05/23/21 00:07 81 97 05/23/21 00:02 85 96 05/23/21 00:00 98.9 F 05/22/21 23:57 79 96 05/22/21 23:52 82 96 05/22/21 23:47 82 96 05/22/21 23:42 79 96 05/22/21 23:37 75 97 05/22/21 23:34 77 114/63 05/22/21 23:32 86 96 05/22/21 23:27 73 96 05/22/21 23:22 80 96 05/22/21 23:17 79 96 05/22/21 23:12 80 96 05/22/21 23:07 80 97 05/22/21 23:02 70 97 05/22/21 22:57 77 97 05/22/21 22:52 75 98 05/22/21 22:47 89 97 05/22/21 22:42 85 98 05/22/21 22:37 78 98 05/22/21 22:32 86 98 05/22/21 22:27 78 98 05/22/21 22:23 75 104/64 05/22/21 22:22 79 98 05/22/21 22:17 77 97 05/22/21 22:12 87 97 05/22/21 22:09 77 114/70 05/22/21 22:07 78 98 05/22/21 22:02 78 99 05/22/21 21:57 77 98 05/22/21 21:55 99 05/22/21 21:53 71 107/71 05/22/21 21:52 76 98 05/22/21 21:47 75 98 05/22/21 21:42 79 98 05/22/21 21:39 75 106/70 05/22/21 21:37 79 98 05/22/21 21:32 73 98 05/22/21 21:27 85 99 05/22/21 21:24 76 109/65 05/22/21 21:22 74 99 05/22/21 21:17 86 99 05/22/21 21:12 79 99 05/22/21 21:09 76 111/66 05/22/21 21:07 80 100 05/22/21 21:03 75 101/55 05/22/21 21:02 77 99 05/22/21 20:57 91 H 99 05/22/21 20:52 98 H 100 05/22/21 20:47 77 97 05/22/21 20:42 79 98 05/22/21 20:39 77 101/65 05/22/21 20:37 77 98 05/22/21 20:32 80 99 05/22/21 20:27 76 99 05/22/21 20:23 78 95/56 05/22/21 20:22 72 100 05/22/21 20:17 99 H 99 05/22/21 20:12 114 H 99 05/22/21 20:09 91 H 96/56 05/22/21 20:07 108 H 99 05/22/21 20:02 103 H 99 05/22/21 19:57 107 H 98 05/22/21 19:52 109 H 85/57 99 05/22/21 19:49 110 H 83/53 05/22/21 19:47 75 97 05/22/21 19:42 110 H 98 05/22/21 19:39 85 104/62 05/22/21 19:37 124 H 96 05/22/21 19:32 82 97 05/22/21 19:27 87 98 05/22/21 19:24 106 H 86/50 05/22/21 19:22 107 H 98 05/22/21 19:17 84 97 05/22/21 19:12 73 98 05/22/21 19:11 106 H 90/52 05/22/21 19:07 119 H 99 05/22/21 19:02 88 98 05/22/21 18:57 71 99 05/22/21 18:56 65 103/64 05/22/21 18:51 74 93 05/22/21 18:50 89 98 05/22/21 18:45 69 98 05/22/21 18:40 68 99/56 98 05/22/21 18:35 75 99 01/15/22 18:30 74 99 05/22/21 18:25 82 88/51 98 05/22/21 18:20 73 98 05/22/21 18:15 67 99 05/22/21 18:10 64 92/56 97 05/22/21 18:05 75 98 05/22/21 18:00 93 H 98 05/22/21 17:59 95 H 91 05/22/21 17:56 66 96/50 05/22/21 17:55 65 95 05/22/21 17:50 68 97 05/22/21 17:45 66 97 05/22/21 17:40 66 98 05/22/21 17:35 66 98 05/22/21 17:30 63 99 05/22/21 17:26 63 109/61 05/22/21 17:25 70 100 05/22/21 17:20 64 98 05/22/21 17:15 72 97 05/22/21 17:11 82 95/61 05/22/21 17:10 65 99 05/22/21 17:05 76 98 05/22/21 17:00 67 99 05/22/21 16:55 63 99 05/22/21 16:54 71 94/54 05/22/21 16:50 65 99 05/22/21 16:47 98.5 F 98 H 18 103/63 98 05/22/21 16:45 72 98 05/22/21 16:41 65 103/63 05/22/21 16:40 76 99 05/22/21 16:35 69 98 05/22/21 16:30 64 98 05/22/21 16:26 67 95/51 05/22/21 16:25 69 98 05/22/21 16:20 81 97 05/22/21 16:15 69 97 05/22/21 16:10 69 99/60 98 05/22/21 16:05 67 98 05/22/21 16:00 65 97 05/22/21 15:56 60 103/58 05/22/21 15:55 63 99 05/22/21 15:50 79 97 05/22/21 15:45 71 97 05/22/21 15:43 18 05/22/21 15:41 65 92/56 05/22/21 15:40 66 97 05/22/21 15:35 64 97 05/22/21 15:30 75 97 05/22/21 15:26 62 96/54 05/22/21 15:25 64 98 05/22/21 15:20 65 98 05/22/21 15:15 63 97 05/22/21 15:10 62 97 05/22/21 15:09 73 94/51 Intake and Output 05/22/21 05/23/21 05/23/21 23:59 07:59 15:59 Intake Total 1057.384 1.267 Output Total 400 400 Balance 1057.384 -398.733 -400 Intake: IV 1057.384 1.267 AMPICILLIN/NS 1 GM/50 ML 100 1 gm In 50 ml @ 100 mls/ hr IV Q4H VICKY Rx#: [id number] Lactated Ringers 1,000 ml 954.167 @ 125 mls/hr IV DIRECT VICKY Rx#:[id number] PITOCin/NS 30 UNIT/500ML 3.217 1.267 30,000 milliunits In 500 ml @ 1 MILLIUNITS/MIN 1 mls/hr IV DIRECT ONE Rx#:[id number] Output: Urine 400 400 Indwelling Catheter 400 400 Other: Total, Output Amount 400 400 # Voids Indwelling Catheter 1 1 Estimated Blood Loss 50 - Exam Breasts: Present: normal, Cardiovascular: Present: Regular rate Lungs: Present: Normal air movement Abdomen: Present: normal appearance, soft Vulva: both: normal Uterus: Present: normal, firm, fundal height below umbilicus Extremities: Present: normal
[2021-05-23 18:12] LABS: Hematocrit 28.2 % (30.3-42.9)
[2021-05-24] MEDS ORDERED: TETANUS,DIPH,PERTUSS(ACELL) VACCINE 0.5 ML SYRINGE IM ONE (06:00)
--- NOTE | 2021-05-24 08:19 | Discharge Summary ---
Providers - Providers Date of Admission: 05/22/21 10:04 Date of discharge: 05/24/21 Attending physician: AURELIA POLLOCK MD 05/23/21 05:36 Consult to Heavy Media Operator [CONS] Routine Reason For Exam: assistance with , SNS Primary care physician: [employer] Hospitalization Reason for admission: active labor Delivery: Episiotomy: none Laceration: none Other procedures: none complications: none Discharge diagnosis: IUP at term delivered baby: male Hospital course: S: Pt doing well. Ambulating, voiding, and passing flatus okay. BC: Undecided. O: VSS. Adequate I&O's. Fundus firm, minimal bleeding noted. H/H 9.0/28.2, asymptomatic anemia of delivery. A: 20 y.o. s/p . In good condition . P: Discharge home with instructions. To schedule son's circumcision appointment in 1 week. To schedule visit in the office in 4-6 wks. Condition at discharge: Good Disposition: 01 HOME / SELF CARE / HOMELESS Plan - Discharge Medications Prescriptions: Docusate Sodium [Colace] 100 mg PO BID PRN #60 capsule PRN Reason: Constipation Lidocain2.5%/Prilocai2.5% [Emla] 5 gm TP ONCE #1 tube Ferrous Sulfate [Feosol 325 MG tab] 325 mg PO QDAY #30 tablet - Provider Discharge Summary Activity: routine, no sex for 6 weeks, no heavy lifting 4 weeks, no strenuous exercise Diet: routine Instructions: routine Additional instructions: [] Smoking cessation referral if applicable(refer to patient education folder for contact #) [] Refer to [facility] Booklet Call your doctor immediately for: * Fever > 100.5 * Heavy vaginal bleeding ( >1 pad per hour) * Severe persistent headache * Shortness of breath * Reddened, hot, painful area to leg or breast * Drainage or odor from incision. * Keep incision clean and dry at all times and follow doctor's instructions regarding bathing/showering Congratulations on the of your baby boy! Thank you for allowing us to take care of you. Please take all medications as directed by your provider. Please schedule your son's circumcision appointment in the office in 1 week. You have been prescribed EMLA cream for your son's circumcision. Please not use this cream at home but bring it with you to your son's circumcision appointment. Please schedule your visit in the office in 4-6 weeks. Should you have any questions or concerns after discharge, please do not hesitate to call the office at [phone]. - Follow up plan Follow up: PRIMARY CARE, [Primary Care Provider] - 7 Days
[2021-05-24] MEDS: DOCUSATE SODIUM 100 MG CAP PO SCH (22:33)
[2021-05-25] MEDS: DOCUSATE SODIUM 100 MG CAP PO SCH (09:16)
[2021-05-25] MEDS: PRENATAL VIT27-FE FUMARATE-FOLIC ACID VIT TAB PO SCH (09:16)
[2021-05-25 11:46] VITALS: BP 112/66
== END 2021-05-25 12:15 | disposition home or self-care (01) | DRG 807 ==
LOC: TRG 08:03 → APU 08:05 → LD 09:01 → TRG 11:02 → OB 05-23 06:03
PROVIDERS: ADMIT Student in an Organized Health Care Education/Training Program; ATTEND Student in an Organized Health Care Education/Training Program
PROC: 10E0XZZ Delivery of Products of Conception, External Approach (ICD-10-PCS; principal; 2021-05-23)
PROC: 3E0R3BZ Introduction of Anesthetic Agent into Spinal Canal, Percutaneous Approach (ICD-10-PCS; 2021-05-23)
PROC: 00HU33Z Insertion of Infusion Device into Spinal Canal, Percutaneous Approach (ICD-10-PCS; 2021-05-23)
PROC: 3E0234Z Introduction of Serum, Toxoid and Vaccine into Muscle, Percutaneous Approach (ICD-10-PCS; 2021-05-24)
DX: O77.0 Labor and delivery complicated by meconium in amniotic fluid (principal); Z37.0 Single live birth; O99.824 Streptococcus B carrier state complicating childbirth; Z3A.39 39 weeks gestation of pregnancy; Z20.822 Contact with and (suspected) exposure to COVID-19; Z83.3 Family history of diabetes mellitus; Z82.49 Family history of ischemic heart disease and other diseases of the circulatory system; O99.344 Other mental disorders complicating childbirth; F32.A Depression, unspecified; O90.81 Anemia of the puerperium; Z23 Encounter for immunization
CPT/HCPCS: 36415; 59025; 85014; 85018; 85027; 86592; 86850; 86900; 86901; 99211; G0378; J3490; G0463; J0290; J2300; J2405; J2590; J7120; U0003